=== PATIENT | male | born 1955 | race Caucasian/White ===

== ENCOUNTER 2018-02-28 09:20 | Day surgery (SDC) | payer BC ==
[~2018-02-28] VITALS: Ht 172.7 cm; Wt 75.0 kg
[2018-02-28 10:03] VITALS: BP 147/98
[2018-02-28] MEDS ORDERED: GABA300C10 PO ×2 (10:18)
[2018-02-28] MEDS ORDERED: LISI5TAB7 PO (10:18)
[2018-02-28] MEDS ORDERED: ASPI-496 PO (10:18)
[2018-02-28] MEDS ORDERED: FURO20TA3 PO (10:18)
[2018-02-28] MEDS ORDERED: GLYB2.5T2 PO (10:18)
[2018-02-28] MEDS ORDERED: MILK150C2 PO (10:18)
[2018-02-28] MEDS ORDERED: SIMV40TA3 PO (10:18)
[2018-02-28] MEDS ORDERED: MULT-6 PO (10:18)
[2018-02-28] MEDS ORDERED: TICAGRELOR 90 MG TABLET ONE (11:19)
[2018-02-28] MEDS ORDERED: VERAPAMIL 2.5 MG/ML, 2ML ONE (11:19)
[2018-02-28] MEDS ORDERED: BIVALIRUDIN 250 MG ONE (11:19)
[2018-02-28] MEDS ORDERED: NITROGLYCERIN 5 MG/ML, 10ML ONE (11:19)
[2018-02-28] MEDS ORDERED: MIDAZOLAM 1 MG/ML, 5ML ONE (11:19)
[2018-02-28] MEDS ORDERED: FENTANYL PF 100 MCG/2ML ONE (11:19)
[2018-02-28] MEDS ORDERED: HEPARIN 1,000 UNITS/ML, 10ML ONE (11:20)
== END 2018-02-28 15:10 | disposition home or self-care (01) ==
LOC: CACL 09:20
PROVIDERS: ATTEND Internal Medicine Cardiovascular Disease
DX: I27.20 Pulmonary hypertension, unspecified (principal); E11.65 Type 2 diabetes mellitus with hyperglycemia; E78.5 Hyperlipidemia, unspecified; I11.0 Hypertensive heart disease with heart failure; I50.9 Heart failure, unspecified; Z72.89 Other problems related to lifestyle
CPT/HCPCS: 93460; 99156; C1769; C1894; J1644; J2250; J3010; Q9967; J0583